=== PATIENT | male | born 1955 | race Caucasian/White ===

== ENCOUNTER → 2023-10-27 | Emergency (ER) | payer MEDICARE, SELFPAY ==
[~2023-10-27] MED LIST: FENTANYL CITR 100 MCG/2 ML ONE; KETOROLAC 30 MG/ML INJ ONE; METHOCARBAMOL 1,000 MG/10 ML VIAL ONE; MORPHINE 4 MG/ML SYR ONE; NA CHLORIDE 0.9% 100 ML ONE; NA CHLORIDE 0.9% 500 ML ONE; dexAMETHasone 10 MG/ML VIAL ONE
--- OUTSIDE RECORDS SUMMARY | 2023-10-27 10:14 | XMS REPORT | Continuity of Care Document ---
Author Name Unknown Address [address] [facility] [address] th[address] Address [address] [facility] [address] [place] [address] Care Team Providers Care Import/Export Clerk Name Role Phone Unavailable Unavailable Unavailable Payers Payer Name Policy Type Policy Number Effective Date Expirati on Date Source [employer] (MEDICARE REPLACEMENT HMO) [id number] 2023 00:00:00 Encounters Start Date/Time End Date/Time Encounter Type Admission Type Attending [facility] Care Department Encounter ID Source 2023-03-09 00:00:00 2023-03-09 00:00:00 Outpatient [facility] [id number] [facility] 2022-12-28 00:00:00 2022-12-28 00:00:00 Outpatient [facility] DMG [id number] [facility]
--- NOTE | 2023-10-27 12:22 | RAD REPORT ---
EXAM DESCRIPTION: USExtrem Venous W Compress Bil10/27/2023 11:50 am CLINICAL HISTORY: Leg pain COMPARISON: none FINDINGS: The common femoral, superficial femoral, greater saphenous, popliteal and posterior tibial veins bilaterally are compressible and demonstrate augmentation. Doppler demonstrates good flow. Grayscale, color and spectral analysis performed on all vessels IMPRESSION: No evidence of deep venous thrombosis involving either lower extremity.
[2023-10-27 12:40] LABS: Absolute Lymphocytes (CBC) 1.6 K/uL (0.7-4.9); Hematocrit 40.6 % (39.6-49.0); Lymphocytes % 27.4 % (15.3-44.8); MCV 86.2 fL (80-100); MPV 7.5 fL (7.6-11.3); Platelets 219 thou/uL (152-406); RBC Red Blood Cell Count 4.71 M/uL (4.33-5.43)
[2023-10-27 12:57] LABS: Bilirubin Total 0.9 mg/dL (0.2-1.0); Potassium 3.7 mEq/L (3.5-5.1); Protein, Total 7.5 g/dL (6.4-8.2)
--- NOTE | 2023-10-27 15:43 | EDPHYS ---
Physician Documentation [facility] Name: Kaushal Gonzalez Age: 67 yrs Sex: Male : 1955 Arrival Date: 10/27/2023 Time: 10:11 Bed 15 Private MD: ED Physician Beto Baptiste HPI: 10/27 11:00 This 67 yrs old Male presents to ER via Ambulatory with complaints of Leg Pain. cp 11:00 The patient presents with pain, that is acute. The complaints affect the lateral aspect cp of left thigh and left quadriceps. Context: resulted from an unknown cause, the patient can partially bear weight, the patient is able to ambulate, with moderate difficulty, Problem is a result from a previous injury: No. Onset: The symptoms/episode began/occurred 3 day(s) ago. 11:00 Associated signs and symptoms: Pertinent positives: tingling, Pertinent negatives cp abdominal pain, lower back pain. 11:00 Treatment prior to arrival includes: no previous treatment. Severity of symptoms: in cp the emergency department the symptoms are unchanged, despite home interventions. Historical: - Allergies: 10:41 No Known Allergies; jj7 - PMHx: 10:41 None; jj7 - PSHx: 10:41 None; jj7 - Immunization history:: Adult Immunizations up to date. - Social history:: Smoking status: Patient denies any tobacco usage or history of. Patient/guardian denies using alcohol, street drugs, IV drugs. ROS: 11:05 Cardiovascular: Negative for chest pain, edema, palpitations, cp 11:05 Eyes: Negative for injury, pain, redness, and discharge, cp 11:05 Constitutional: Negative for body aches, chills, fever, poor PO intake, 11:05 Neck: Negative for pain with movement, pain at rest, stiffness, 11:05 Respiratory: Negative for cough, shortness of breath, wheezing, 11:05 Back: Negative for injury or acute deformity, pain at rest, pain with movement, 11:05 MS/extremity: Positive for pain, tingling, of the left quadriceps and lateral aspect of left thigh, Negative for injury or acute deformity, 11:05 Skin: Negative for rash, 11:05 Neuro: Negative for altered mental status, headache, weakness, 11:05 All other systems are negative, Exam: 11:20 Constitutional: The patient appears in no acute distress, alert, awake, non-toxic, well cp developed, well nourished, in obvious pain, uncomfortable, 11:20 Head/Face: Normocephalic, atraumatic. cp 11:20 Eyes: Periorbital structures: appear normal, Conjunctiva: normal, no exudate, no injection, Sclera: no appreciated abnormality, Lids and lashes: appear normal, bilaterally, 11:20 ENT: External ear(s): are unremarkable, Nose: is normal, Mouth: Lips: moist, Oral mucosa: moist, 11:20 Neck: ROM/movement: is normal, is supple, without pain, no range of motions limitations, 11:20 Chest/axilla: Inspection: normal, 11:20 Cardiovascular: Rate: normal, Rhythm: regular, left dorsalis pedis pulse palpable, weak, 11:20 Respiratory: the patient does not display signs of respiratory distress, Respirations: normal, no use of accessory muscles, no retractions, labored breathing, is not present, Breath sounds: are clear throughout, no decreased breath sounds, no stridor, no wheezing, 11:20 Abdomen/GI: Inspection: abdomen appears normal, Palpation: abdomen is soft and non-tender, in all quadrants, 11:20 Back: pain, is absent, ROM is normal, 11:20 Musculoskeletal/extremity: Extremities: grossly normal except: noted in the left quadriceps and lateral aspect of left thigh: pain, tenderness, ROM: limited passive range of motion due to pain, in the left leg, Perfusion: the extremity is normally perfused throughout, the left leg 11:20 Skin: cellulitis, is not appreciated, no rash present. Vital Signs: 10:37 BP 152 / 91; Pulse 73; Resp 16; Temp 98.1; Pulse Ox 100% ; Weight 99.79 kg; Height 6 jj7 ft. 1 in. ; Pain 10/10; 11:45 BP 150 / 88; Pulse 77; Resp 17; Temp 98(O); Pulse Ox 99% ; rs5 13:00 BP 152 / 90; Pulse 70; Resp 17; Pulse Ox 99% on R/A; rs5 14:52 BP 145 / 84; Pulse 76; Resp 18; Pulse Ox 99% on R/A; rs5 10:37 Body Mass Index 29.03 (99.79 kg, 185.42 cm) 7 10:37 Pain Scale: Adult jj7 MDM: 10:46 Patient medically screened. cp 15:40 Data reviewed: vital signs, nurses notes, lab test result(s), radiologic studies, cp ultrasound. 15:40 Differential diagnosis: dislocation, closed fracture, contusion. Counseling: I had a cp detailed discussion with the patient and/or guardian regarding the historical points, exam findings, and any diagnostic results supporting the discharge/admit diagnosis, lab results, radiology results, to return to the emergency department if symptoms worsen or persist or if there are any questions or concerns that arise at home. Response to treatment: the patient's symptoms have markedly improved after treatment, and as a result, I will discharge patient. 10/27 10:40 Order name: Urinalysis W/Microscopic cp 10/27 12:17 Order name: CBC with Diff; Complete Time: 13:18 cp 10/27 13:18 Interpretation: Normal except: MPV 7.5; EOSINOPHIL % 4.7. 10/27 12:17 Order name: CMP; Complete Time: 13:18 cp 10/27 13:19 Interpretation: Normal except: GFR 82; AST 55. cp 10/27 10:40 Order name: US Extremity Venous W Compression Desmond; Complete Time: 12:39 cp 10/27 12:39 Interpretation: Report reviewed. 10/27 15:01 Order name: LE Artery Uni Ltd; Complete Time: 16:20 cp 10/27 12:17 Order name: IV Saline Lock; Complete Time: 12:20 cp 10/27 12:17 Order name: Labs collected and sent; Complete Time: 12:20 cp Administered Medications: 10:50 Drug: Dexamethasone IM 10 mg IM once Route: IM; Site: right deltoid; rs5 11:05 Follow up: Response: No adverse reaction rs5 10:50 Drug: morphine IM 4 mg IM once Route: IM; Site: left deltoid; rs5 11:05 Follow up: Response: No adverse reaction rs5 12:25 Drug: NS 0.9% IV 500 ml IV at 500 ml/hr continuous Route: IV; Rate: 500 ml/hr; Site: rs5 right antecubital; 13:00 Follow up: Response: No adverse reaction rs5 12:25 Drug: Methocarbamol IVPB 1 grams IVPB once over 1 hrs; (mix in NS 100 mL) Route: IVPB; rs5 Infused Over: 1 hrs; Site: right antecubital; 13:00 Follow up: Response: No adverse reaction; Pain is decreased rs5 12:25 Drug: fentaNYL (PF) IVP 25 mcg IVP once Route: IVP; Site: right antecubital; rs5 13:02 Follow up: Response: No adverse reaction rs5 15:33 Drug: fentaNYL (PF) IVP 25 mcg IVP once Route: IVP; Site: right antecubital; rs5 15:52 Follow up: Response: No adverse reaction; Pain is decreased rs5 15:33 Drug: Ketorolac IVP 15 mg IVP once Route: IVP; Site: right antecubital; rs5 15:52 Follow up: Response: No adverse reaction; Pain is decreased rs5 Disposition Summary: 10/27/23 15:42 Discharge Ordered Notes: Location: Home cp Problem: new cp Symptoms: have improved cp Condition: Stable cp Diagnosis - Pain in left leg cp Followup: cp - With: Private Physician - When: 2 - 3 days - Reason: Recheck today's complaints Discharge Instructions: - Discharge Summary Sheet cp - Musculoskeletal Pain cp Forms: - Medication Reconciliation Form cp - Thank You Letter cp - Antibiotic Education cp - Prescription Opioid Use cp - Patient Portal Instructions cp - Leadership Thank You Letter cp Prescriptions: - Diclofenac Sodium 75 mg Oral Tablet Sustained Release - take 1 tablet ORAL route 2 times per day; 30 tablet; Refills: 0, Product cp Selection Permitted - Tramadol 50 mg Oral Tablet - take 1 tablet ORAL route every 8 hours as needed; 12 tablet; Refills: 0, cp Product Selection Permitted - Medrol (Gil) 4 mg Oral Tablets, Dose Pack - take 1 tablet ORAL route as directed - follow package instructions; 1 packet; cp Refills: 0, Product Selection Permitted - methocarbamol 750 mg Oral tablet - take 1 tablet ORAL route 3 times per day; 30 tablet; Refills: 0, Product cp Selection Permitted Signatures: Dispatcher [employer] EDMS Beto Hobbs PA PA cp Johnson, Juwairiyah, RN RN jj7 Elder Brandt RN RN rs5 Corrections: (The following items were deleted from the chart) 10/28 16:06 10/27 11:00 Onset: The symptoms/episode began/occurred 4 day(s) ago, cp cp
--- NOTE | 2023-10-27 15:43 | ER ---
Nurse's Notes [facility] Name: Kaushal Gonzalez Age: 67 yrs Sex: Male : 1955 Arrival Date: 10/27/2023 Time: 10:11 Bed 15 Private MD: Diagnosis: Pain in left leg Presentation: 10/27 10:37 Chief complaint: Patient states: LEFT LEG PAIN STARTED WED MORNING. TINGLING. jj7 Coronavirus screen: At this time, the client does not indicate any symptoms associated with coronavirus-19. Ebola Screen: No symptoms or risks identified at this time. Initial Sepsis Screen: Does the patient meet any 2 criteria? No. Patient's initial sepsis screen is negative. Does the patient have a suspected source of infection? No. Patient's initial sepsis screen is negative. Risk Assessment: Do you want to hurt yourself or someone else? Patient reports no desire to harm self or others. Onset of symptoms was October 23, 2023. 10:37 Method Of Arrival: Ambulatory [facility] 10:37 Acuity: RANDALL 3 jj7 Triage Assessment: 10:41 General: Appears in no apparent distress. comfortable, Behavior is calm, cooperative, jj7 appropriate for age. Pain: Complains of pain in right quadriceps and dorsum of right foot Pain currently is 10 out of 10 on a pain scale. Historical: - Allergies: 10:41 No Known Allergies; jj7 - PMHx: 10:41 None; jj7 - PSHx: 10:41 None; jj7 - Immunization history:: Adult Immunizations up to date. - Social history:: Smoking status: Patient denies any tobacco usage or history of. Patient/guardian denies using alcohol, street drugs, IV drugs. Screenin:43 [facility] ED Fall Risk Assessment (Adult) History of falling in the last 3 months, jj7 including since admission No falls in past 3 months (0 pts) Confusion or Disorientation No (0 pts) Intoxicated or Sedated No (0 pts) Impaired Gait No (0 pts) Mobility Assist Device Used No (0 pt) Altered Elimination No (0 pt) Score/Fall Risk Level 0 - 2 = Low Risk Oriented to surroundings, Maintained a safe environment, Educated pt \T\ family on fall prevention, incl call for assistance when getting out of bed. Abuse screen: Denies threats or abuse. Nutritional screening: No deficits noted. Tuberculosis screening: No symptoms or risk factors identified. Assessment: 10:45 General: Appears in no apparent distress. uncomfortable, Behavior is calm, cooperative. rs5 Pain: Complains of pain in left upper leg Pain radiates to left foot Pain currently is 7 out of 10 on a pain scale. Quality of pain is described as aching, Pain began 10/24/23 Is continuous, Aggravated by increased activity, weight bearing. Neuro: Level of Consciousness is awake, alert, obeys commands, Oriented to person, place, time, situation. Cardiovascular: Heart tones S1 S2 present Patient's skin is warm and dry. Rhythm is regular. Respiratory: Airway is patent Respiratory effort is even, unlabored, Respiratory pattern is regular, symmetrical. 10:45 GI: Bowel sounds present X 4 quads. Abd is soft and non tender X 4 quads. : No signs rs5 and/or symptoms were reported regarding the genitourinary system. EENT: No signs and/or symptoms were reported regarding the EENT system. Derm: Skin is intact, Skin is pink, warm \T\ dry. Musculoskeletal: Range of motion: limited in left leg no swelling, redness, or bruising noted to affected extremity. Pt denies recent fall or injury to affected extremity. 11:35 Reassessment: Patient and/or family updated on plan of care and expected duration. Pain rs5 level reassessed. Patient is alert, oriented x 3, equal unlabored respirations, skin warm/dry/pink. Patient states feeling better. Patient states symptoms have improved. 12:05 Pain: Complains of pain in left upper leg Pain does not radiate. Pain currently is 7 rs5 out of 10 on a pain scale. Quality of pain is described as aching, Is continuous. Neuro: Intact. Cardiovascular: Capillary refill < 3 seconds is brisk in bilateral fingers toes. 12:05 Reassessment: Provider notified pt is re-experiencing pain. rs5 13:02 Reassessment: Patient and/or family updated on plan of care and expected duration. Pain rs5 level reassessed. Patient denies pain at this time. 14:10 Reassessment: Lucas provided per pt request. rs5 15:00 Reassessment:. Pain: Complains of pain in left upper leg Pain does not radiate. Pain rs5 currently is 8 out of 10 on a pain scale. Quality of pain is described as aching, Is continuous. 15:00 Reassessment: Provider notified pt is reexperiencing pain . rs5 15:53 Reassessment: Patient and/or family updated on plan of care and expected duration. Pain rs5 level reassessed. Patient is alert, oriented x 3, equal unlabored respirations, skin warm/dry/pink. Patient denies pain at this time. Patient states feeling better. Vital Signs: 10:37 BP 152 / 91; Pulse 73; Resp 16; Temp 98.1; Pulse Ox 100% ; Weight 99.79 kg; Height 6 jj7 ft. 1 in. ; Pain 10/10; 11:45 BP 150 / 88; Pulse 77; Resp 17; Temp 98(O); Pulse Ox 99% ; rs5 13:00 BP 152 / 90; Pulse 70; Resp 17; Pulse Ox 99% on R/A; rs5 14:52 BP 145 / 84; Pulse 76; Resp 18; Pulse Ox 99% on R/A; rs5 10:37 Body Mass Index 29.03 (99.79 kg, 185.42 cm) jj7 10:37 Pain Scale: Adult j7 ED Course: 10:15 Patient arrived in ED. ts1 10:15 Beto Hobbs PA is PHCP. cp 10:15 Beto Baptiste MD is Attending Physician. cp 10:41 Triage completed. jj7 10:41 Arm band placed on right wrist. jj7 11:00 Patient has correct armband on for positive identification. Bed in low position. Call rs5 light in reach. Side rails up X2. 11:23 Elder Brandt, RN is Primary Nurse. rs5 11:52 US Extremity Venous W Compression Desmond In Process Unspecified. EDMS 12:22 Inserted saline lock: 20 gauge in right antecubital area, using aseptic technique. rs5 Blood collected. 15:52 US LE Artery Uni Ltd In Process Unspecified. EDMS 15:53 No provider procedures requiring assistance completed. IV discontinued, intact, rs5 bleeding controlled, No redness/swelling at site. Pressure dressing applied. Administered Medications: 10:50 Drug: Dexamethasone IM 10 mg IM once Route: IM; Site: right deltoid; rs5 11:05 Follow up: Response: No adverse reaction rs5 10:50 Drug: morphine IM 4 mg IM once Route: IM; Site: left deltoid; rs5 11:05 Follow up: Response: No adverse reaction rs5 12:25 Drug: NS 0.9% IV 500 ml IV at 500 ml/hr continuous Route: IV; Rate: 500 ml/hr; Site: rs5 right antecubital; 13:00 Follow up: Response: No adverse reaction rs5 12:25 Drug: Methocarbamol IVPB 1 grams IVPB once over 1 hrs; (mix in NS 100 mL) Route: IVPB; rs5 Infused Over: 1 hrs; Site: right antecubital; 13:00 Follow up: Response: No adverse reaction; Pain is decreased rs5 12:25 Drug: fentaNYL (PF) IVP 25 mcg IVP once Route: IVP; Site: right antecubital; rs5 13:02 Follow up: Response: No adverse reaction rs5 15:33 Drug: fentaNYL (PF) IVP 25 mcg IVP once Route: IVP; Site: right antecubital; rs5 15:52 Follow up: Response: No adverse reaction; Pain is decreased rs5 15:33 Drug: Ketorolac IVP 15 mg IVP once Route: IVP; Site: right antecubital; rs5 15:52 Follow up: Response: No adverse reaction; Pain is decreased rs5 Medication: 12:01 VIS not applicable for this client. rs5 Outcome: 15:42 Discharge ordered by . cp 16:22 Discharged to home ambulatory, rs5 16:22 Condition: stable 16:22 Discharge instructions given to patient, 16:23 Patient left the ED. rs5 Signatures: Dispatcher [employer] EDMS Beto Hobbs PA PA cp Johnson, Juwairiyah, RN RN jj7 Elder Brandt RN RN rs5 Liseth Gomez PAS PAS ts1 Corrections: (The following items were deleted from the chart) 14:51 13:02 Reassessment: Patient and/or family updated on plan of care and expected rs5 duration. Pain level reassessed. Patient is alert/active/playful, equal unlabored respirations, skin warm/dry/pink. Patient denies pain at this time. rs5
--- NOTE | 2023-10-27 16:02 | RAD REPORT ---
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
[2023-10-27 17:29] VITALS: BP 145/84; TEMP 98; O2SAT 99
== END ==
LOC: ER 10:11
DX: M79.605 Pain in left leg (principal)
CPT/HCPCS: 85025; 36415; 80053; 93926; 93970; 96375; 96372; 96374; 99284; J3010 ×2; J1100; J2800; J7040